=== PATIENT | male | born 1985 | race Caucasian/White ===

== ENCOUNTER → 2016-05-29 09:03 | Day surgery (SDC) | payer OTHER ==
[~2016-05-29 09:03] MED LIST: Buffered Lidocaine 1% SYR 3ML* 3 ML/SYR SYRINGE ONE; Bupivacaine 0.25% EPI 200,000* 30 ML SDV ONE; Bupivacaine 0.25% SDV* 30 ML ONE; Dexamethasone IV* 4 MG/ML 1 ML (4 MG) ONE; DiMENhydriNATE IV* 50 MG/ML VIAL IV PUSH PRN; Famotidine IV* 10 MG/ML 2 ML (20 mg) ONE; HYDROcodone/ACETAMIN 5-325 MG* 1 TAB PO PRN; HYDROmorphone INJ* 1 MG/ML CARPUJECT SYRINGE IV PRN; Ketorolac INJ* 30 MG/ML 1 ML VIAL ONE; Lidocaine 2% PF * 5 ML VIAL ONE; Midazolam* 1 MG/ML 5 ML VIAL (5 MG) ONE; Propofol* 10 MG/ML 20 ML BTL IV PUSH ONE; Sterile Water for Inj* 0 ML ONE; ceFAZolin 2 GM PREMIX (*) 2 GM/50 ML BAG IVPB ONE; fentaNYL* 50 MCG/ML 2 ML VIAL (100 MCG VIAL) ONE; methylPREDNISolone ACETATE 80* 80 MG/ML 1 ML VIAL ONE; oxyCODONE/Acetamin 5/325 MG* TAB ONE
[2016-05-29 12:20] VITALS: BP 119/71
--- NOTE | 2016-05-30 05:50 | OP ---
DATE OF OPERATION: 05/29/16 [facility] DATE OF : 89 SURGEON: Dennise Portillo MD INSTRUMENT MECHANIC: SYDNEY Rausch. An technology assistant was needed for the entirety of the case to help with positioning, retraction, and utilized through all portions of the case. ANESTHESIOLOGIST: Dr. Acosta. ANESTHESIA: General with LMA. PRE-OP DIAGNOSIS: Right knee loose body. POST-OP DIAGNOSIS: Right knee loose body. OPERATIVE PROCEDURE: Right knee arthroscopy with synovectomy and partial lateral meniscectomy. IMPLANTS: None. INDICATIONS: González Adhikari is a 31-year-old male who has had symptoms of locking of his right knee around 1 year after his ACL. He had this done by Dr. Finch in [place] at the age of 17. This was done in transtibial technique. He does state that it occasionally swells up on it. He had a second surgery by Dr. Finch where he went in to remove that loose body. He since that time noticed that he does have episodes of this locking, but he does not describe odilia instability, although he is unable to fully describe what he is talking about. Risks and benefits and surgery versus nonoperative treatment were discussed at length. He did have an MRI that is consistent with a loose body and it was just superior proximal to the ACL and it appeared to be loose on some views and on some views, it did not appear to be loose. Risks and benefits of surgery were discussed at length and he elected to proceed with surgery. DESCRIPTION OF PROCEDURE: The patient was greeted in the preoperative area by the attending surgeon. The correct extremity was marked and consent was confirmed. The patient was then brought back to the operating suite where he was placed in supine position on the operating table. He then underwent general anesthesia and LMA intubation after which an examination of the knee was done. He was found to have a 2A Leanna, negative posterior drawer. He had 1+ pivot shift, stable to varus and valgus stress, and trace effusion. After administration of surgical pause, the knee was intra-articularly injected with 0.25% Marcaine with epi. The knee was then prepped and draped in the usual sterile fashion beginning with a prescrub of chlorhexidine soap and alcohol wipe and a final prep of ChloraPrep. After appropriate surgical pause indicating site, side, procedure, and administration of antibiotics, the anterolateral portal was made sharply with the 11 blade. The scope was introduced into the joint. There was abundant scar tissue in fat pad anteriorly. The patellofemoral joint was examined and had grade 1 changes. Trochlea had grade 0 changes. The medial and lateral gutters were intact without any loose bodies. The scope was brought into the notch. There were some anterior fibers of the ACL that were not intact. These were debrided back. After making medial portal, the scar also was debrided back carefully. The probe was used and the medial condyle was examined. There were no tears in the medial meniscus. The medial femoral condyle had grade 0 to 1 changes. The medial tibial plateau had 0 to 1 changes. The ACL was found to be intact although it was not functional, it was a vertical graft. The PCL was intact. There were no loose bodies that were evident at this point. The knee was then placed in [id number] position. He was very stiff. He did have evidence of a previous parrot beak tear that apparently healed, but there was small unstable fraying that was debrided back using a shaver. The groove of the meniscus was intact, but had some unstable fraying which was debrided back as well. At this point, the probe was carefully used to try to delve out if there was a loose body in the notch itself although this was difficult to assess. The electrocautery device was also used to debride back some of the unstable fibers without causing harm to the actual ligament. The scope was then placed in the Olivia portal. This had been in between the medial femoral condyle and the PCL, and using a 30-degree scope, it was examined. There were no tears in the medial meniscus. There were no loose bodies evident. A 70- degree scope was also used to see if there is any visualization. The posterior aspect of the knee was gently massaged and there were no loose bodies evident. This was done multiple times with a 70-degree and a 30-degree scope in different portions of the knee and there was no loose body. There was an area of grade 3 to 4 changes of the lateral femoral condyle that was about 1 cm longitudinally and about 2 mm and there were no unstable flaps. All loose debris and fluid was removed from the joint. The knee was cycled many times. There was no loose body that was evident. After lavage was done, the knee was intra-articularly injected with 80 of Depo and 30 cc of 0.25 % plain. Sterile dressings were applied. The portals were closed with 3-0 nylon. He was awoken from anesthesia and transferred to the PACU in stable condition. POSTOPERATIVE PLAN: He will be weightbearing as tolerated. I discussed the findings with his significant other, and I do not know that there may be a small bony piece, but it was in the ACL and PCL and it was not loose. He may be describing some subtle signs of instability and we will consider that at his next visit. DVT prophylaxis is considered, but deferred due to no previous personal or family history. I will see the patient back in 10 to 14 days. [id number]/[facility] #: [id number] [facility]ENTER[facility]by
== END | disposition home or self-care (01) ==
LOC: OREAST 09:03
PROVIDERS: ATTEND Orthopaedic Surgery
DX: M23.41 Loose body in knee, right knee (principal); M23.232 Derangement of other medial meniscus due to old tear or injury, left knee; Z87.891 Personal history of nicotine dependence; J45.909 Unspecified asthma, uncomplicated
CPT/HCPCS: 88304; A9270-GY; J0690; J1040; J1100; J1885; J2250; J2704; J3010

== ENCOUNTER 2016-06-13 17:16 | Inpatient (IN) | payer OTHER ==
[2016-06-13] MEDS ORDERED: Bupivacaine 0.25% SDV* 30 ML ONE (17:42)
[2016-06-13] MEDS ORDERED: Bupivacaine 0.25% EPI 200,000* 30 ML SDV ONE (17:42)
[2016-06-13] MEDS ORDERED: ceFAZolin 2 GM PREMIX (*) 2 GM/50 ML BAG IVPB ONE (18:03)
[2016-06-13] MEDS ORDERED: oxyCODONE TAB* 5 MG TAB PO PRN (18:19)
[2016-06-13] MEDS ORDERED: diPHENhydraMINE IV* 50 MG/ML 1 ml VIAL (BENADRYL) IV PRN (18:19)
[2016-06-13] MEDS ORDERED: Ondansetron TAB* 4 MG PO PRN (18:19)
[2016-06-13] MEDS ORDERED: oxyCODONE/Acetamin 5/325 MG* TAB PO PRN (18:19)
[2016-06-13] MEDS ORDERED: Acetaminophen TAB* 325 MG PO PRN (18:19)
[2016-06-13] MEDS ORDERED: fentaNYL* 50 MCG/ML 2 ML VIAL (100 MCG VIAL) ONE ×3 (18:21→19:39)
[2016-06-13 18:31] LABS: Hematocrit 40 % (42-52); Hemoglobin 13.5 g/dl (14.0-18.0); Mean Corpuscular HGB Conc 34 g/dl (31-36); Mean Corpuscular Hemoglobin 32 pg (27-31); Mean Corpuscular Volume 93 fL (80-94); Mean Platelet Volume 8 um3 (7.4-10.4); Red Blood Count 4.27 10^6/ul (4.0-5.4); Red Cell Distribution Width 13 % (10.5-15); White Blood Count 17.3 10^3/ul (3.5-10.8)
[2016-06-13] MEDS ORDERED: DiMENhydriNATE IV* 50 MG/ML VIAL IV PUSH PRN (18:56)
[2016-06-13] MEDS ORDERED: Ondansetron INJ* 2 MG/ML VIAL IV PRN (18:56)
[2016-06-13] MEDS ORDERED: Ketorolac INJ* 30 MG/ML 1 ML VIAL IV PRN (18:56)
[2016-06-13 19:07] LABS: Erythrocyte Sed Rate 56 mm/Hr (0-14)
[2016-06-13] MEDS ORDERED: Propofol* 10 MG/ML 20 ML BTL IV PUSH ONE (19:17)
[2016-06-13] MEDS ORDERED: Lidocaine 2% PF * 5 ML VIAL ONE (19:17)
[2016-06-13] MEDS: fentaNYL* 50 MCG/ML 2 ML VIAL (100 MCG VIAL) IV PRN ×3 (19:25→19:55)
[2016-06-13] MEDS ORDERED: Ketorolac INJ* 30 MG/ML 1 ML VIAL ONE (20:13)
[2016-06-13] MEDS ORDERED: Morphine INJ* 2 MG/ML 1 ML CARPUJECT ONE (21:26)
[2016-06-13] MEDS: Morphine INJ* 2 MG/ML 1 ML CARPUJECT IV PRN (21:28)
[2016-06-13 22:42] LABS: Hematocrit 30 % (42-52); Hemoglobin 9.7 g/dl (14.0-18.0); Mean Corpuscular HGB Conc 33 g/dl (31-36); Mean Corpuscular Hemoglobin 31 pg (27-31); Mean Corpuscular Volume 94 fL (80-94); Mean Platelet Volume 9 um3 (7.4-10.4); Red Blood Count 3.12 10^6/ul (4.0-5.4); Red Cell Distribution Width 12 % (10.5-15); White Blood Count 12.2 10^3/ul (3.5-10.8)
[2016-06-14] MEDS: Morphine INJ* 2 MG/ML 1 ML CARPUJECT IV PRN (00:46)
[2016-06-14] MEDS: Oxacillin(*) 2 GM in NS 0.9% 100 ML* 100 ML IVPB SCH ×6 (00:48→20:06)
[2016-06-14] MEDS ORDERED: HYDROmorphone INJ* 1 MG/ML CARPUJECT SYRINGE ONE (02:03)
[2016-06-14] MEDS: HYDROmorphone INJ* 1 MG/ML CARPUJECT SYRINGE IV PRN ×4 (02:06→20:47)
[2016-06-14] MEDS ORDERED: ceFAZolin 1 GM in Dextrose (*) 1 GM/50 ML BAG IVPB SCH (02:30)
[2016-06-14] MEDS: oxyCODONE/Acetamin 5/325 MG* TAB PO PRN ×5 (03:05→22:37)
[2016-06-14] MEDS ORDERED: Albuterol 2.5 MG/3 ML NEB.SOL* (0.083%) INH PRN (04:08)
--- NOTE | 2016-06-14 04:08 | CONSULT ---
Consult Consult: PCP: SYDNEY Avalos Date/Time of Evaluation: 06/14/20161999 Reason for Consult: post-operative fever, rigors, & tachycardia s/p septic R knee wash out HPI: Mr Adhikari is a 31YO male HX R knee arthroscopy 2weeks ago last Sunday looking for a joint mouse. He did well afterwards until this past weekend when he states his knee "locked" and developed increased pain along with low grade fevers. Angelica Portillo MD orthopedics evaluated him in the office finding the R knee very swollen, but not hot or red. She obtained an aspirate which surprisingly was not blood and sent it for evaluation. The result was 77k WBCs and MSSA positive. She contacted him advising him to meet her at [facility] at 1600 for admission and joint wash out. Due to come misunderstanding on his end, Mr Adhikari ended up at [place] ED, was admitted, and subsequently discharged in order to come to [facility]. At any rate, he was seen my myself in recovery after the knee washout at the request of Dr Portillo due to developing tachycardia, fever, and rigors post-operatively. On my exam, he is groggy from general anesthesia, but answers appropriately, denies current pain or issues. PMedHx asthma R knee ACL tear Allergies Morphine Allergy (Verified 06/14/16 04:06) Rash And Itching Ambulatory Orders Otc Cold Medication 1 dose PO Q8H PRN 05/25/16 PSurgHx tympanostomy tubes appendectomy orchiectomy w/ circumcision R ACL reconstruction w/ subsequent joint mouse retrieval R knee arthroscopy R knee wash out 06/13/2016 SocHx: social alcohol & tobacco, denies recreational drugs; works in the [employer]; full code status FamHx: Mother: multiple cerebral aneurysms ROS: as above, otherwise reviewed and all were negative Constitutional: NAD, normally developed, well-nourished white male vitals: Vital Signs Temp 38.0 C 06/14/16 03:16 Pulse 87 06/14/16 03:16 Resp 16 06/14/16 03:16 BP 112/58 06/14/16 03:16 Pulse Ox 98 06/14/16 03:16 Intake & Output 06/13/16 06/13/16 06/14/16 11:59 23:59 11:59 Intake Total 820 600 Output Total 950 400 Balance -130 200 Weight 73.028 kg Intake: IV Fluids 500 LR 500 Oral 820 100 Output: Urine 950 400 Other: # Bowel Movements 0 HEENM: atraumatic; sclera/conjunctiva: non-icteric/clear; hearing: clinically intact; oropharynx: clear, mucosa moist Neck: soft tissue: no nuchal rigidity; thyroid: normal Pulmonary: clear to auscultation bilaterally, good aeration, no accessory muscle use CV: RR/RR, normal S1S2, no carotid bruit, no jugular venous distention, 2+ B DP/ PT, no edema Abdominal: soft, non-distended, non-tender, no rebound/guarding/rigidity, normoactive bowel sounds, no hepatosplenomegaly or masses, no costovertebral angle tenderness Musculoskeletal: general: R knee dressing clean & dry; gait: currently non- ambulatory 2nd being post-op R knee wash out Integumental: normal appearance and texture of exposed skin Psychiatric orientation: AA&O to PPS affect: somnolent mood: cooperative eye contact: fair to good content: reliable responses: mildly slowed 2nd anesthesia insight: fair to good Testing: Lab Results 06/13/16 06/13/16 06/13/16 Range/Units 18:17 18:17 22:31 WBC 17.3 H 12.2 H (3.5-10.8) 10^3/ul RBC 4.27 3.12 L (4.0-5.4) 10^6/ul Hgb 13.5 L 9.7 L (14.0-18.0) g/dl Hct 40 L 30 L (42-52) % MCV 93 94 (80-94) fL MCH 32 H 31 (27-31) pg MCHC 34 33 (31-36) g/dl RDW 13 12 (10.5-15) % Plt Count 208 145 L (150-450) 10^3/ul MPV 8 9 (7.4-10.4) um3 Neut % (Auto) 83.4 H (38-83) % Lymph % (Auto) 8.4 L (25-47) % [place] % (Auto) 7.7 (1-9) % Eos % (Auto) 0.1 (0-6) % Baso % (Auto) 0.4 (0-2) % Absolute Neuts (auto) 14.4 H (1.5-7.7) 10^3/ul Absolute Lymphs (auto) 1.5 (1.0-4.8) 10^3/ul Absolute Monos (auto) 1.3 H (0-0.8) 10^3/ul Absolute Eos (auto) 0 (0-0.6) 10^3/ul Absolute Basos (auto) 0.1 (0-0.2) 10^3/ul Absolute Nucleated RBC 0 10^3/ul Nucleated RBC % 0 ESR 56 H (0-14) mm/Hr C-Reactive Protein 206.70 H (< 5.00) mg/L Impression: 31M presenting with septic R knee ~2weeks s/p arthroscopy positive for MSSA DIAGNOSIS & PLAN Primary sepsis 2nd MSSA septic R knee : surgical management via Angelica Portillo MD orthopedic surgery : obtain blood CXs : switch ABX to oxacillin : 2L IVF bolus followed by infusion : pain control : PT evaluation : supportive care Secondary asthma : PRN albuterol neb Admission Rational: inpatient for sepsis 2nd MSSA septic R knee inappropriate for outpatient management DVTp: heparin SQ to start 06/14, if OK with orthopedics Code Status: full
--- NOTE | 2016-06-14 06:32 | HP ---
HISTORY AND PHYSICAL: DATE OF ADMISSION: 06/13/16 HISTORY OF PRESENT ILLNESS: González follows up for his right knee status post arthroscopy with meniscectomy 2 weeks and 1 days ago. I saw him last week and he was doing well. Approximately, 3 days ago, he woke up and he walked; he said he mildly felt a pop but he has not entirely sure. He has lot of swelling. He has had some pain with weightbearing. He has a lost some motion. He states that he had a few episodes of chills. He states that he may have had a low-grade fever today. He has a temperature of 98. He denies any catching or locking. He is concerned that may be his knee locked out. He is present with his lad friend. He is unable to weight bear comfortably. His knee is in about 15 degrees. He has a marked amount of swelling. PAST MEDICAL HISTORY: Significant for asthma. PAST SURGICAL HISTORY: ACL reconstruction with BTB autograft at age of 17, loose body removal in the right knee at age 19, appendectomy, PE tube, orchiectomy with circumcision age of 11, and right knee arthroscopy with debridement and partial meniscectomy about 2 weeks ago. MEDICATIONS: Medications are not up to date at home, but he was taking Plavix and aspirin currently. In hospital, he is taking atenolol and albuterol. He did not take Plavix today. Humalog, Flagyl, Zofran, Vanco. He did obtain a dose of Cipro and Zosyn. ALLERGIES: None. FAMILY HISTORY: Significant for aneurysms in the brain as well as mother who had a stroke. 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 Smokes on occasion. Drinks on occasion. REVIEW OF SYSTEMS: A 14-point review of systems was significant only for above complaints low-grade fevers, chills, and pain with weightbearing. Otherwise, remainder of systems is negative. PHYSICAL EXAMINATION He is in no acute distress. He is well developed and well nourished. He is alert and oriented x3. EOMI. Chest is clear to auscultation bilaterally. Heart is regular rate and rhythm. Abdomen is soft and nontender. Examination of the right knee demonstrates, the skin is intact. The incisions are healed well. There is no erythema or real warmth. He has a markedly large effusion. He is unable to fully extend his knee. Passively, I can get him to about 5 degrees shy of full extension. He can flex to about 30 degrees. He is tender about the knee, particularly about the medial and lateral portals. His calf is soft and nontender. He is sensitive to light touch grossly distally. He has brisk cap refill. He has guarding on exam. ASSESSMENT AND PLAN: I am concerned that he has a large knee effusion. He states that his knee lock is starting to swell significantly. He does not appear to be very ill but he said he has had some small chills, I think that is reasonable to proceed with an aspiration. PROCEDURE: The right knee was prepped and draped in a usual sterile fashion. A 22-gauge needle was used to numb the superior lateral portal with 10 cc of lidocaine. An 18- gauge needle was then used to aspirate approximately 105 cc of cloudy, somewhat purulent, material. He tolerated the injection well. A Band-Aid was applied. The fluid looked concerning; therefore, we sent for stat gram stain culture and cell count, and we will call him back with the results. ADDENDUM: DIAGNOSTICS STUDIES/LAB DATA: The lab called back. The cell count is 100; however, the white blood cell count is 77,000, 80% neutrophils. I am concerned that he has a septic joint. The gram stain and culture are not back yet. I did call the patient and let him know the result. I told him that I would like to wash him out this evening and he should remain n.p.o. He verbalized understanding. He should head to the hospital and we will take care of it this afternoon. Labs including CRP, CBC, and ESR will be drawn prior to the OR. Abx held until more specimen is collected. Plan is for arthroscopic I and D of right knee. [id number]/[facility] #: [id number] [facility]ITAL[facility]by
--- NOTE | 2016-06-14 08:53 | PN ---
Progress Note - Progress Note SOAP: Subjective: []Patient is seen at bedside. Girlfriend present. Pain comes in waves, moderate at times, currently comfortable. Denies SOB or dizziness. Objective: [] Vital Signs Temp 98.7 F 06/14/16 07:34 Pulse 82 06/14/16 07:34 Resp 16 06/14/16 08:32 BP 136/63 06/14/16 07:34 Pulse Ox 100 06/14/16 07:34 Intake & Output 06/13/16 06/14/16 06/14/16 18:59 06:59 18:59 Intake Total 2400 Output Total 1750 Balance 650 Weight 161 lb 161 lb Intake: IV Fluids 1150 LR 1150 IVPB 130 Oxacillin 130 Oral 1120 Output: Urine 1750 Other: # Bowel Movements 0 Laboratory Results - last 24 hr 06/13/16 06/13/16 06/13/16 18:17 18:17 22:31 WBC 17.3 H 12.2 H RBC 4.27 3.12 L Hgb 13.5 L 9.7 L Hct 40 L 30 L MCV 93 94 MCH 32 H 31 MCHC 34 33 RDW 13 12 Plt Count 208 145 L MPV 8 9 Neut % (Auto) 83.4 H Lymph % (Auto) 8.4 L [place] % (Auto) 7.7 Eos % (Auto) 0.1 Baso % (Auto) 0.4 Absolute Neuts (auto) 14.4 H Absolute Lymphs (auto) 1.5 Absolute Monos (auto) 1.3 H Absolute Eos (auto) 0 Absolute Basos (auto) 0.1 Absolute Nucleated RBC 0 Nucleated RBC % 0 ESR 56 H C-Reactive Protein 206.70 H Microbiology 06/13/16 18:47 Skin and Soft Tissue MRSA/MSSA (PCR - Final Knee Right Mrsa Negative S.aureus Positive Gram Stain - Final right knee RAFAEL is clean, dry and intact Cryo applied calf is non tender and soft Luca's sign negative neuro intact distally Assessment: []MSSA right knee infection s/p knee arthroscopy wash out POD #1 Plan: []PT WBAT IV Oxacillin Heparin for DVT prophylaxis Medicine consult appreciated Awaiting blood cultures
--- NOTE | 2016-06-14 15:21 | PN ---
Subjective Date of Service: 06/14/16 Interval History: Patient seen and examined at bedside. Pt states that he is feeling well today, but continues to have right knee pain. Pt states that his right knee feels "tight and swollen". Denies fever, chills, shortness of breath, chest discomfort , N/V/D. Pt is noted to have a low grade temp today, 100.7 temp max. Pt states that he has been able to get up and ambulate to the bathroom with crutches. Family History: Unchanged from Admission Social History: Unchanged from Admission Past Medical History: Unchanged from Admission Objective Active Medications: Acetaminophen (Tylenol Tab*) 650 mg PO Q4H PRN Reason: PAIN OR TEMPERATURE Albuterol (Ventolin 2.5 Mg/3 Ml Neb.Stephenie*) 2.5 mg INH Q2H PRN Reason: SOB/ WHEEZING Diphenhydramine HCl (Benadryl Iv*) 12.5 mg IV Q6H PRN Reason: PRURITIS Hydromorphone HCl (Dilaudid Iv*) 1 mg IV Q2H PRN Reason: PAIN Lactated Ringer's (Lactated Ringers 1000 Ml Bag*) 1,000 mls @ 150 mls/hr IV PER RATE EFREM Oxacillin Sodium 2 gm/ Sodium (Chloride) 100 mls @ 200 mls/hr IVPB Q4H EFREM Ondansetron HCl (Zofran Tab*) 4 mg PO Q6H PRN Reason: NAUSEA Oxycodone HCl (Roxycodone Tab*) 10 mg PO Q4H PRN Reason: SEVERE PAIN Oxycodone/Acetaminophen (Percocet 5/325 Tab*) 1 tab PO Q3H PRN Reason: PAIN - MODERATE Oxycodone/Acetaminophen (Percocet 5/325 Tab*) 2 tab PO Q3H PRN Reason: PAIN - MODERATE Vital Signs 06/13/16 06/13/16 06/13/16 17:43 19:23 19:25 Temperature 99.1 F 101.3 F 101.3 F Pulse Rate 97 140 122 Respiratory 16 22 22 Rate Blood Pressure 138/65 113/78 118/74 (mmHg) O2 Sat by Pulse 100 99 96 Oximetry 06/13/16 06/13/16 06/13/16 19:30 19:35 19:50 Temperature Pulse Rate 110 122 112 Respiratory 18 18 18 Rate Blood Pressure 148/72 145/62 133/54 (mmHg) O2 Sat by Pulse 98 98 98 Oximetry 06/13/16 06/13/16 06/13/16 19:55 20:10 20:21 Temperature 99.5 F Pulse Rate 102 106 Respiratory 20 16 16 Rate Blood Pressure 133/61 134/68 (mmHg) O2 Sat by Pulse 99 99 Oximetry 06/13/16 06/13/16 06/13/16 21:09 21:28 22:00 Temperature 99.4 F Pulse Rate 91 Respiratory 18 20 20 Rate Blood Pressure 135/63 (mmHg) O2 Sat by Pulse 100 Oximetry 06/13/16 06/13/16 06/13/16 22:01 22:28 22:41 Temperature 99.3 F Pulse Rate 86 Respiratory 16 20 20 Rate Blood Pressure 117/54 (mmHg) O2 Sat by Pulse 100 Oximetry 06/13/16 06/14/16 06/14/16 23:38 00:41 00:46 Temperature 100.4 F Pulse Rate 97 Respiratory 18 18 20 Rate Blood Pressure 109/61 (mmHg) O2 Sat by Pulse 97 Oximetry 06/14/16 06/14/16 06/14/16 01:10 01:46 02:06 Temperature 100.7 F Pulse Rate 92 Respiratory 18 20 18 Rate Blood Pressure 119/61 (mmHg) O2 Sat by Pulse 99 Oximetry 06/14/16 06/14/16 06/14/16 03:05 03:06 03:16 Temperature 100.4 F Pulse Rate 87 Respiratory 18 18 16 Rate Blood Pressure 112/58 (mmHg) O2 Sat by Pulse 98 Oximetry 06/14/16 06/14/16 06/14/16 07:34 08:00 08:32 Temperature 98.7 F Pulse Rate 82 Respiratory 16 16 16 Rate Blood Pressure 136/63 (mmHg) O2 Sat by Pulse 100 100 Oximetry 06/14/16 06/14/16 06/14/16 10:32 11:17 11:59 Temperature 99.0 F Pulse Rate 65 Respiratory 16 16 17 Rate Blood Pressure 120/55 (mmHg) O2 Sat by Pulse 98 Oximetry 06/14/16 06/14/16 13:16 15:00 Temperature Pulse Rate 85 Respiratory 16 16 Rate Blood Pressure (mmHg) O2 Sat by Pulse 98 Oximetry Oxygen Devices in Use Now: None Appearance: NAD, sitting up in bed. Eyes: No Scleral Icterus, PERRLA Ears/Nose/Mouth/Throat: NL Teeth, Lips, Gums, Mucous Membranes Moist Neck: NL Appearance and Movements; NL JVP, Trachea Midline Respiratory: Symmetrical Chest Expansion and Respiratory Effort, Clear to Auscultation Cardiovascular: NL Sounds; No Murmurs; No JVD, RRR Abdominal: NL Sounds; No Tenderness; No Distention Extremities: - - Edema to right knee. Skin: No Rash or Ulcers, - - Dressing to right knee clean, dry and intact. Neurological: Alert and Oriented x 3, NL Muscle Strength and Tone Lines/Tubes/Other Access: Clean, Dry and Intact Peripheral IV - site benign Nutrition: Taking PO's Result Diagrams: 06/13/16 22:31 Microbiology and Other Data: Microbiology 06/13/16 18:47 Gram Stain - Final Body Fluid - Knee Right 06/13/16 18:47 Skin and Soft Tissue MRSA/MSSA (PCR - Final Knee Right Mrsa Negative S.aureus Positive 06/13/16 18:47 Anaerobic Culture - Preliminary Body Fluid No Growth Day 1 Assess/Plan/Problems-Billing Assessment: Mr. Adhikari is a 31 yo male with PMH significant for asthma and a right ACL tear who is S/P right knee arthroscopy, who presented to the hospital with increased pain and swelling in his right knee and was taken to the OR for a washout with Dr. Portillo on 06/13. - Patient Problems (1) Sepsis due to Methicillin susceptible Staphylococcus aureus Code(s): A41.01 - SEPSIS DUE TO METHICILLIN SUSCEPTIBLE STAPHYLOCOCCUS AUREUS SNOMED Code(s): 354398847 Comment: - Improved - Received 2 L IVF bolus - Meeting sepsis criteria on admission with SIRS - tachycardia, tachypnea, fever , leukocytosis. Pt not meeting qSofa. - Tachycardia and tachypnea have resolved. - Blood cultures pending - Continue Oxacillin (2) Septic joint of right knee joint Code(s): M00.9 - PYOGENIC ARTHRITIS, UNSPECIFIED SNOMED Code(s): 162754434 Comment: - Management per Ortho - Continue Oxacillin - Continue PT (3) DVT prophylaxis Code(s): MNO3251 - SNOMED Code(s): 179208587 Comment: - SQ heparin (4) Full code status Code(s): Z78.9 - OTHER SPECIFIED HEALTH STATUS SNOMED Code(s): 514850056 Status and Disposition: Inpatient. Disposition per Orthopedics.
[2016-06-14] MEDS ORDERED: Ketorolac INJ* 30 MG/ML 1 ML VIAL ONE (20:43)
[2016-06-14] MEDS: Ketorolac INJ* 30 MG/ML 1 ML VIAL IV PUSH PRN (20:48)
[2016-06-14] MEDS: Heparin VIAL(*) 5000 UNITS/ML VIAL (FIVE THOUSAND) SUBCUT SCH (22:37)
[2016-06-15] MEDS: Oxacillin(*) 2 GM in NS 0.9% 100 ML* 100 ML IVPB SCH ×6 (00:44→20:37)
[2016-06-15] MEDS: HYDROmorphone INJ* 1 MG/ML CARPUJECT SYRINGE IV PRN ×2 (00:44→05:35)
[2016-06-15] MEDS: oxyCODONE/Acetamin 5/325 MG* TAB PO PRN ×5 (02:55→20:27)
[2016-06-15] MEDS: Ketorolac INJ* 30 MG/ML 1 ML VIAL IV PUSH PRN ×4 (02:55→21:41)
[2016-06-15 04:59] LABS: Hematocrit 36 % (42-52); Hemoglobin 11.9 g/dl (14.0-18.0); Mean Corpuscular HGB Conc 33 g/dl (31-36); Mean Corpuscular Hemoglobin 32 pg (27-31); Mean Corpuscular Volume 95 fL (80-94); Mean Platelet Volume 8 um3 (7.4-10.4); Red Blood Count 3.77 10^6/ul (4.0-5.4); Red Cell Distribution Width 13 % (10.5-15); White Blood Count 8.3 10^3/ul (3.5-10.8)
[2016-06-15] MEDS: Heparin VIAL(*) 5000 UNITS/ML VIAL (FIVE THOUSAND) SUBCUT SCH ×3 (05:35→22:37)
--- NOTE | 2016-06-15 07:57 | PN ---
Progress Note - Progress Note SOAP: Subjective: []Patient seen at bedside. Feeling better in terms of knee pain. He reports being ambulatory and able to move his knee better. Denies fever or chills, chest pain or SOB. Objective: [] Vital Signs Temp 97.9 F 06/15/16 04:15 Pulse 64 06/15/16 04:15 Resp 16 06/15/16 07:38 BP 97/66 06/15/16 04:15 Pulse Ox 99 06/15/16 04:15 Intake & Output 06/14/16 06/15/16 06/15/16 18:59 06:59 18:59 Intake Total 4061 2364 Output Total 1100 2550 Balance 2961 -186 Intake: IV Fluids 1571 254 LR 1236 157 NS 97 Oxacillin 335 IVPB 450 Oxacillin 450 Oral 2490 1660 Output: Urine 1100 2550 Other: Estimated Void Large # Bowel Movements 0 # Voids 2 Laboratory Results - last 24 hr 06/15/16 06/15/16 04:36 04:36 WBC 8.3 RBC 3.77 L Hgb 11.9 L Hct 36 L MCV 95 H MCH 32 H MCHC 33 RDW 13 Plt Count 202 MPV 8 Neut % (Auto) 49.0 Lymph % (Auto) 32.9 [place] % (Auto) 16.4 H Eos % (Auto) 1.4 Baso % (Auto) 0.3 Absolute Neuts (auto) 4.1 Absolute Lymphs (auto) 2.7 Absolute Monos (auto) 1.4 H Absolute Eos (auto) 0.1 Absolute Basos (auto) 0 Absolute Nucleated RBC 0.01 Nucleated RBC % 0.1 C-Reactive Protein 223.46 H Microbiology 06/14/16 00:57 Aerobic Blood Culture - Preliminary Blood Venous No Growth Day 1 Anaerobic Blood Culture - Preliminary No Growth Day 1 06/14/16 00:57 Aerobic Blood Culture - Preliminary Blood Venous No Growth Day 1 Anaerobic Blood Culture - Preliminary No Growth Day 1 06/13/16 18:47 Gram Stain - Final Body Fluid - Knee Right 06/13/16 18:47 Skin and Soft Tissue MRSA/MSSA (PCR - Final Knee Right Mrsa Negative S.aureus Positive 06/13/16 18:47 Anaerobic Culture - Preliminary Body Fluid No Growth Day 1 Assessment: [] MSSA Septic right knee, s/p arthroscopic washout POD #2 Awaiting Blood cultures, NGTD Plan: []Patient on Oxacillin IV q4 hrs. Heparin q 12hrs for dvt prophylaxis OOB ad briana, WBAT Continue to monitor and for CRP to start trending down Await home antibiotic recommendations
[2016-06-15] MEDS ORDERED: Magnesium Hydroxide LIQ* 30 ML UDC PO PRN (08:51)
[2016-06-15] MEDS ORDERED: Senna TAB PO PRN (08:52)
[2016-06-15] MEDS: Docusate CAP* 100 MG PO PRN (09:30)
[2016-06-15] MEDS ORDERED: NS 0.9% 100 ML* 100 ML ONE (11:55)
--- NOTE | 2016-06-15 14:07 | PN ---
Subjective Date of Service: 06/15/16 Interval History: Patient seen and examined at bedside. Pt states that the pain in his right knee is improving. Denies fever, chills, shortness of breath, chest discomfort, N/V/ D. Family History: Unchanged from Admission Social History: Unchanged from Admission Past Medical History: Unchanged from Admission Objective Active Medications: Acetaminophen (Tylenol Tab*) 650 mg PO Q4H PRN Reason: PAIN OR TEMPERATURE Albuterol (Ventolin 2.5 Mg/3 Ml Neb.Stephenie*) 2.5 mg INH Q2H PRN Reason: SOB/ WHEEZING Diphenhydramine HCl (Benadryl Iv*) 12.5 mg IV Q6H PRN Reason: PRURITIS Docusate Sodium (Colace Cap*) 100 mg PO DAILY PRN Reason: CONSTIPATION Heparin Sodium (Porcine) (Heparin Vial(*)) 5,000 units SUBCUT Q8HR EFREM Hydromorphone HCl (Dilaudid Iv*) 1 mg IV Q2H PRN Reason: PAIN Oxacillin Sodium 2 gm/ Sodium (Chloride) 100 mls @ 200 mls/hr IVPB Q4H EFREM Ketorolac Tromethamine (Toradol Inj*) 30 mg IV PUSH Q6H PRN Reason: PAIN Magnesium Hydroxide (Milk Of Magnesia Liq*) 30 ml PO Q6H PRN Reason: CONSTIPATION Ondansetron HCl (Zofran Tab*) 4 mg PO Q6H PRN Reason: NAUSEA Oxycodone HCl (Roxycodone Tab*) 10 mg PO Q4H PRN Reason: SEVERE PAIN Oxycodone/Acetaminophen (Percocet 5/325 Tab*) 1 tab PO Q3H PRN Reason: PAIN - MODERATE Oxycodone/Acetaminophen (Percocet 5/325 Tab*) 2 tab PO Q3H PRN Reason: PAIN - MODERATE Senna (Senokot Tab*) 1 tab PO DAILY PRN Reason: CONSTIPATION Vital Signs 06/14/16 06/14/16 06/14/16 15:00 15:27 16:30 Temperature 98.0 F Pulse Rate 85 71 Respiratory 16 16 16 Rate Blood Pressure 115/58 (mmHg) O2 Sat by Pulse 98 100 Oximetry 06/14/16 06/14/16 06/14/16 17:30 17:37 18:32 Temperature 99.5 F Pulse Rate 83 Respiratory 16 16 16 Rate Blood Pressure 131/54 (mmHg) O2 Sat by Pulse Oximetry 06/14/16 06/14/16 06/14/16 20:00 20:15 20:32 Temperature 99.4 F Pulse Rate 100 Respiratory 18 18 18 Rate Blood Pressure 126/55 (mmHg) O2 Sat by Pulse 99 Oximetry 06/14/16 06/14/16 06/14/16 20:47 21:25 21:47 Temperature Pulse Rate 11 Respiratory 18 19 16 Rate Blood Pressure (mmHg) O2 Sat by Pulse 99 Oximetry 06/14/16 06/14/16 06/15/16 22:37 23:48 00:37 Temperature 98.2 F Pulse Rate 65 Respiratory 16 18 16 Rate Blood Pressure 108/60 (mmHg) O2 Sat by Pulse 99 Oximetry 06/15/16 06/15/16 06/15/16 04:15 04:55 05:35 Temperature 97.9 F Pulse Rate 64 Respiratory 16 16 16 Rate Blood Pressure 97/66 (mmHg) O2 Sat by Pulse 99 Oximetry 06/15/16 06/15/16 06/15/16 06:35 07:12 07:38 Temperature 97.9 F Pulse Rate 61 Respiratory 16 18 16 Rate Blood Pressure 98/59 (mmHg) O2 Sat by Pulse 100 Oximetry 06/15/16 06/15/16 06/15/16 08:00 09:38 11:58 Temperature Pulse Rate Respiratory 16 18 18 Rate Blood Pressure (mmHg) O2 Sat by Pulse 100 Oximetry Oxygen Devices in Use Now: None Appearance: NAD, sitting up in a chair. Eyes: No Scleral Icterus, PERRLA Ears/Nose/Mouth/Throat: NL Teeth, Lips, Gums, Mucous Membranes Moist Neck: NL Appearance and Movements; NL JVP, Trachea Midline Respiratory: Symmetrical Chest Expansion and Respiratory Effort, Clear to Auscultation Cardiovascular: NL Sounds; No Murmurs; No JVD, RRR Abdominal: NL Sounds; No Tenderness; No Distention Extremities: No Edema Skin: - - Dressing to right knee clean, dry and intact. Neurological: Alert and Oriented x 3, NL Muscle Strength and Tone Lines/Tubes/Other Access: Clean, Dry and Intact Peripheral IV - site benign Nutrition: Taking PO's Result Diagrams: 06/15/16 04:36 Microbiology and Other Data: Microbiology 06/13/16 18:47 Gram Stain - Final Body Fluid - Knee Right 06/13/16 18:47 Skin and Soft Tissue MRSA/MSSA (PCR - Final Knee Right Mrsa Negative S.aureus Positive 06/13/16 18:47 Anaerobic Culture - Preliminary Body Fluid No Growth Day 1 Assess/Plan/Problems-Billing Assessment: Mr. Adhikari is a 31 yo male with PMH significant for asthma and a right ACL tear who is S/P right knee arthroscopy, who presented to the hospital with increased pain and swelling in his right knee and was taken to the OR for a washout with Dr. Portillo on 06/13. - Patient Problems (1) Sepsis due to Methicillin susceptible Staphylococcus aureus Code(s): A41.01 - SEPSIS DUE TO METHICILLIN SUSCEPTIBLE STAPHYLOCOCCUS AUREUS SNOMED Code(s): 053492399 Comment: - Resolved - Received 2 L IVF bolus - Meeting sepsis criteria on admission with SIRS - tachycardia, tachypnea, fever , leukocytosis. Pt not meeting qSofa. - Tachycardia, tachypnea and leukocytosis have resolved. - Now afebrile. - Blood cultures, no growth day 1 - Continue Oxacillin (2) Septic joint of right knee joint Code(s): M00.9 - PYOGENIC ARTHRITIS, UNSPECIFIED SNOMED Code(s): 688637675 Comment: - S/P right knee washout, POD #2 - Management per Ortho - Continue Oxacillin - Will defer ABX to ID. Will likely need to have continued IV ABX. - Continue PT (3) DVT prophylaxis Code(s): VQK7443 - SNOMED Code(s): 995206330 Comment: - SQ heparin (4) Full code status Code(s): Z78.9 - OTHER SPECIFIED HEALTH STATUS SNOMED Code(s): 232102517 Status and Disposition: Inpatient. Disposition per Orthopedics.
[2016-06-15 15:58] LABS: C Reactive Protein 201.74 mg/L (< 5.00)
--- NOTE | 2016-06-15 17:20 | PN ---
Progress Note - Progress Note Note: pt seen and examined afebrile. feeling better. able to weight bear. Temp Pulse Resp BP Pulse Ox 98.2 F 58 18 109/46 100 06/15/16 15:49 06/15/16 15:49 06/15/16 16:47 06/15/16 15:49 06/15/16 15:49 NAD. right leg effusion decreased. less tender to palpation. no erythema or warmth. calf soft, nontender. able to flex/ext ankle and toes. silt grossly. brisk cap refill. Laboratory Results - last 24 hr 06/15/16 06/15/16 06/15/16 04:36 04:36 15:15 WBC 8.3 RBC 3.77 L Hgb 11.9 L Hct 36 L MCV 95 H MCH 32 H MCHC 33 RDW 13 Plt Count 202 MPV 8 Neut % (Auto) 49.0 Lymph % (Auto) 32.9 [place] % (Auto) 16.4 H Eos % (Auto) 1.4 Baso % (Auto) 0.3 Absolute Neuts (auto) 4.1 Absolute Lymphs (auto) 2.7 Absolute Monos (auto) 1.4 H Absolute Eos (auto) 0.1 Absolute Basos (auto) 0 Absolute Nucleated RBC 0.01 Nucleated RBC % 0.1 C-Reactive Protein 223.46 H 201.74 H Microbiology 06/13/16 18:47 Body Fluid - Knee Right Gram Stain - Final 06/13/16 18:47 Body Fluid - Knee Right Body Fluid Culture - Preliminary Staphylococcus Aureus 06/13/16 18:47 Body Fluid Anaerobic Culture - Preliminary 06/14/16 00:57 Blood Venous Aerobic Blood Culture - Preliminary No Growth Day 1 06/14/16 00:57 Blood Venous Anaerobic Blood Culture - Preliminary No Growth Day 1 06/14/16 00:57 Blood Venous Aerobic Blood Culture - Preliminary No Growth Day 1 06/14/16 00:57 Blood Venous Anaerobic Blood Culture - Preliminary No Growth Day 1 06/13/16 18:47 Knee Right Skin and Soft Tissue MRSA/MSSA (PCR - Final Mrsa Negative S.aureus Positive A/P 31 yo M with septic arthritis s/p knee scope. cont abx await sensitivies to determine final abx potential d/c home tomorrow if continues to improve. will likely have him follow with ID on outpatient basis as well
[2016-06-16] MEDS: Oxacillin(*) 2 GM in NS 0.9% 100 ML* 100 ML IVPB SCH ×6 (00:06→20:35)
[2016-06-16] MEDS: oxyCODONE/Acetamin 5/325 MG* TAB PO PRN ×8 (00:08→23:52)
--- NOTE | 2016-06-16 01:08 | OP ---
DATE OF OPERATION: 06/13/16 - ROOM #340 DATE OF : 89 SURGEON: Dennise Portillo MD DOOR TECHNICIAN: No video library assistant was available for this case. ANESTHESIOLOGIST: Dr. Rankin. ANESTHESIA: General. PRE-OP DIAGNOSIS: Right knee septic arthritis. POST-OP DIAGNOSIS: Right knee septic arthritis. OPERATIVE PROCEDURE: Right knee arthroscopic irrigation and debridement with culture. INDICATIONS: González Adhikari is a 31-year-old otherwise healthy male who underwent an uneventful knee arthroscopy approximately 2 weeks ago. He presented to the clinic after 2 days of swelling and increased pain. In the clinic, his knee was aspirated. There was concern for cloudy fluid, therefore this was sent to the lab stat. He was kept NPO. The lab results came back with elevated white blood cell count of 77,000. He was starting to get more pain. He reported some mild chills, he was brought back to the hospital later this evening for an emergent arthroscopic irrigation and debridement. Risks and benefits of surgery were discussed at length and include, but are not limited to, bleeding, infection, damage to nerves, vessels, surrounding structures, arthritis, worsening infection, need for further surgery, risk of DVT, and risk of anesthesia. He has elected to proceed. The pre-prep examination demonstrated the effusion had returned, it was quite large again, it is now warm and erythematous. COMPLICATIONS: None. ESTIMATED BLOOD LOSS: Minimal. SPECIMENS: Sent to the lab. DESCRIPTION OF PROCEDURE: The patient was greeted in the preoperative area by the attending surgeon. The correct extremity was marked and consent was confirmed. The patient was then brought back to the operating suite where he was placed in the supine position on the operating table. A nonsterile tourniquet was placed high on the proximal leg as well as the lateral post. The patient underwent general anesthesia with LMA intubation, which he tolerated without difficulty after which the right leg was prepped and draped in usual sterile fashion beginning with chlorhexidine soap, scrub, and alcohol, and a final prep with ChloraPrep. After appropriate surgical pause indicating side, site, procedure, and administration of antibiotics, the lateral portal was made sharply with an 11- blade. Scope was introduced to the joint. The joint was examined. There was obvious purulent drainage apparent. This was evacuated from the knees, sent to the lab for evaluation. Then, the knee was copiously irrigated with 12 L of sterile saline. The anteromedial portal was then made and the shaver was brought into help irrigate and cause more turbulent flow and remove any adherent soft tissue. After the thorough lavage was completed, the portals were closed with 3-0 nylon. The drain was not placed due to the fact that this was caught so early. He was awoken from anesthesia and transferred to the PACU in stable condition. POSTOPERATIVE PLAN: He will be admitted, placed on oxacillin. The Gram stain came back just prior to surgery with MSSA. We olga a CBC, CRP, and ESR prior to surgery and we will continue to monitor them postop. ID is not in-house and was not consulted; therefore, hospitalist will be consulted. DVT prophylaxis will be heparin with scds while in house. [id number]/[facility] #: [id number] MTDD
[2016-06-16] MEDS: Heparin VIAL(*) 5000 UNITS/ML VIAL (FIVE THOUSAND) SUBCUT SCH ×3 (05:36→21:26)
[2016-06-16] MEDS: Docusate CAP* 100 MG PO PRN (08:18)
[2016-06-16 11:26] LABS: Albumin 3.3 g/dL (3.2-5.2); BUN/Creatinine Ratio 10.9 (8-20); Calcium 9.2 mg/dL (8.6-10.3); EGFR African American 125.1 (>60); EGFR Non-African American 97.3 (>60); Globulin 3.2 g/dL (2-4); Potassium 4.1 mmol/L (3.5-5.0); Total Bilirubin 0.5 mg/dL (0.2-1.0); Total Protein 6.5 g/dL (6.4-8.9)
--- NOTE | 2016-06-16 12:38 | PN ---
Progress Note - Progress Note SOAP: Subjective: [31 year old male s/p arthroscopic I&D for right knee sepsis 06/15/2016. Patient reports pain, ROM slightly improved from yesterday, no fever, chills overnight. Upset that pain medication decreased which has lead to increased pain overall. Eager for D/C. Febrile overnight to 101.3F. Objective: [General- Resting comfortably, eating breakfast. MSK- Dressing intact, no drainage seen, minimal swelling, No edema b/l LE's. PT pulses 2+ b/l. ] Assessment: [][31 year old male s/p arthroscopic I&D for right knee sepsis 06/15/2016. Vital Signs Temp 98.5 F 06/16/16 07:57 Pulse 80 06/16/16 11:34 Resp 16 06/16/16 11:34 BP 129/75 06/16/16 07:57 Pulse Ox 100 06/16/16 11:34 Intake & Output 06/15/16 06/16/16 06/16/16 18:59 06:59 18:59 Intake Total 1370 1793 Output Total 0 375 Balance 1370 1418 Intake: IV Fluids 30 NS 30 IVPB 370 263 NS 60 Oxacillin 310 263 Oral 1000 1500 Output: Urine 0 375 Other: Estimated Void Medium Medium # Bowel Movements 0 # Voids 1 Plan: [- ID to see patient today, PICC to be placed, D/C after PICC placement and home care arrangements - Continue pain regimen - Continue IV ABX per Dr. Merlos recommendations - Dressing change by nursing staff daily. - CRP declining from 223 to 201. ] Active Medications Generic Name Dose Route Start Last Admin Trade Name Rylee PRN Reason Stop Dose Admin Acetaminophen 650 mg 06/13/16 18:19 Tylenol Tab* PO Q4H PRN PAIN OR TEMPERATURE Albuterol 2.5 mg 06/14/16 04:08 Ventolin 2.5 Mg/3 Ml Neb.Stephenie* INH Q2H PRN SOB/WHEEZING Diphenhydramine HCl 12.5 mg 06/13/16 18:19 Benadryl Iv* IV Q6H PRN PRURITIS Docusate Sodium 100 mg 06/15/16 08:54 06/16/16 08:18 Colace Cap* PO 100 mg DAILY PRN Administration CONSTIPATION Heparin Sodium (Porcine) 5,000 units 06/14/16 22:00 06/16/16 05:36 Heparin Vial(*) SUBCUT 5,000 units Q8HR EFREM Administration Hydromorphone HCl 1 mg 06/14/16 01:58 06/15/16 05:35 Dilaudid Iv* IV 1 mg Q2H PRN Administration PAIN Oxacillin Sodium 2 gm/ Sodium 100 mls @ 200 mls/hr 06/14/16 00:30 06/16/16 08 :17 Chloride IVPB 200 mls/hr Q4H EFREM Administration Ketorolac Tromethamine 30 mg 06/14/16 20:18 06/15/16 21:41 Toradol Inj* IV PUSH 30 mg Q6H PRN Administration PAIN Magnesium Hydroxide 30 ml 06/15/16 08:51 06/15/16 20:26 Milk Of Magnesia Liq* PO 30 ml Q6H PRN Administration CONSTIPATION Ondansetron HCl 4 mg 06/13/16 18:19 Zofran Tab* PO Q6H PRN NAUSEA Oxycodone HCl 10 mg 06/13/16 18:19 Roxycodone Tab* PO Q4H PRN SEVERE PAIN Oxycodone/Acetaminophen 1 tab 06/13/16 18:19 06/13/16 22:41 Percocet 5/325 Tab* PO 1 tab Q3H PRN Administration PAIN - MODERATE Oxycodone/Acetaminophen 2 tab 06/13/16 18:19 06/16/16 10:47 Percocet 5/325 Tab* PO 2 tab Q3H PRN Administration PAIN - MODERATE Senna 1 tab 06/15/16 08:52 06/15/16 09:30 Senokot Tab* PO 1 tab DAILY PRN Administration CONSTIPATION Laboratory Results - last 24 hr 06/15/16 15:15 Sodium 137 Potassium 4.1 Chloride 104 Carbon Dioxide 24 Anion Gap 9 BUN 10 Creatinine 0.92 Est GFR ( Amer) 125.1 Est GFR (Non-Af Amer) 97.3 BUN/Creatinine Ratio 10.9 Glucose 79 Calcium 9.2 Total Bilirubin 0.50 AST 50 H ALT 61 H Alkaline Phosphatase 89 C-Reactive Protein 201.74 H Total Protein 6.5 Albumin 3.3 Globulin 3.2 Albumin/Globulin Ratio 1.0
--- NOTE | 2016-06-16 14:10 | PN ---
Subjective Date of Service: 06/16/16 Interval History: Patient seen and examined at bedside. Pt reports intermittent fever and chills. Pt had a temp 101.3 last night. Denies chest discomfort, shortness of breath, N/ V/D. Pt states that he continues to have pain in his right knee, he feels the pain is about the same and not improving. He reports continues swelling in the right knee. Family History: Unchanged from Admission Social History: Unchanged from Admission Past Medical History: Unchanged from Admission Objective Active Medications: Acetaminophen (Tylenol Tab*) 650 mg PO Q4H PRN Reason: PAIN OR TEMPERATURE Albuterol (Ventolin 2.5 Mg/3 Ml Neb.Stephenie*) 2.5 mg INH Q2H PRN Reason: SOB/ WHEEZING Diphenhydramine HCl (Benadryl Iv*) 12.5 mg IV Q6H PRN Reason: PRURITIS Docusate Sodium (Colace Cap*) 100 mg PO DAILY PRN Reason: CONSTIPATION Heparin Sodium (Porcine) (Heparin Vial(*)) 5,000 units SUBCUT Q8HR EFREM Heparin Sodium (Porcine) (Heparin Flush Picc/Ml/Cvc(*)) 1 - 3 ml FLUSH 0600, 1800 EFERM Reason: Protocol Hydromorphone HCl (Dilaudid Iv*) 1 mg IV Q2H PRN Reason: PAIN Oxacillin Sodium 2 gm/ Sodium (Chloride) 100 mls @ 200 mls/hr IVPB Q4H EFREM Ketorolac Tromethamine (Toradol Inj*) 30 mg IV PUSH Q6H PRN Reason: PAIN Magnesium Hydroxide (Milk Of Magnesia Liq*) 30 ml PO Q6H PRN Reason: CONSTIPATION Ondansetron HCl (Zofran Tab*) 4 mg PO Q6H PRN Reason: NAUSEA Oxycodone HCl (Roxycodone Tab*) 10 mg PO Q4H PRN Reason: SEVERE PAIN Oxycodone/Acetaminophen (Percocet 5/325 Tab*) 1 tab PO Q3H PRN Reason: PAIN - MODERATE Oxycodone/Acetaminophen (Percocet 5/325 Tab*) 2 tab PO Q3H PRN Reason: PAIN - MODERATE Senna (Senokot Tab*) 1 tab PO DAILY PRN Reason: CONSTIPATION Vital Signs 06/15/16 06/15/16 06/15/16 15:49 16:00 16:47 Temperature 98.2 F Pulse Rate 58 Respiratory 16 18 Rate Blood Pressure 109/46 (mmHg) O2 Sat by Pulse 100 100 Oximetry 06/15/16 06/15/16 06/15/16 18:47 19:25 20:00 Temperature 97.9 F Pulse Rate 74 Respiratory 18 16 18 Rate Blood Pressure 111/67 (mmHg) O2 Sat by Pulse 99 Oximetry 06/15/16 06/15/16 06/15/16 20:27 21:46 22:26 Temperature 101.3 F Pulse Rate Respiratory 18 18 Rate Blood Pressure (mmHg) O2 Sat by Pulse Oximetry 06/16/16 06/16/16 06/16/16 00:02 00:08 02:08 Temperature 99.5 F Pulse Rate 66 Respiratory 16 18 16 Rate Blood Pressure 127/66 (mmHg) O2 Sat by Pulse 99 Oximetry 06/16/16 06/16/16 06/16/16 03:42 03:46 05:46 Temperature 98.3 F Pulse Rate 80 Respiratory 16 18 18 Rate Blood Pressure 137/61 (mmHg) O2 Sat by Pulse 99 Oximetry 06/16/16 06/16/16 06/16/16 07:57 08:00 08:17 Temperature 98.5 F Pulse Rate 83 Respiratory 16 16 16 Rate Blood Pressure 129/75 (mmHg) O2 Sat by Pulse 100 100 Oximetry 06/16/16 06/16/16 06/16/16 10:47 11:34 13:45 Temperature Pulse Rate 80 Respiratory 16 16 16 Rate Blood Pressure (mmHg) O2 Sat by Pulse 100 Oximetry Oxygen Devices in Use Now: None Appearance: NAD, laying in bed. Eyes: No Scleral Icterus, PERRLA Ears/Nose/Mouth/Throat: NL Teeth, Lips, Gums, Mucous Membranes Moist Neck: NL Appearance and Movements; NL JVP, Trachea Midline Respiratory: Symmetrical Chest Expansion and Respiratory Effort, Clear to Auscultation Cardiovascular: NL Sounds; No Murmurs; No JVD, RRR Abdominal: NL Sounds; No Tenderness; No Distention Extremities: - - Swelling to right knee Skin: - - Dressing to right knee clean, dry and intact Neurological: Alert and Oriented x 3, NL Muscle Strength and Tone Lines/Tubes/Other Access: Clean, Dry and Intact PICC Line - site benign Nutrition: Taking PO's Result Diagrams: 06/15/16 04:36 06/15/16 15:15 Microbiology and Other Data: Microbiology 06/13/16 18:47 Gram Stain - Final Body Fluid - Knee Right 06/13/16 18:47 Skin and Soft Tissue MRSA/MSSA (PCR - Final Knee Right Mrsa Negative S.aureus Positive 06/13/16 18:47 Anaerobic Culture - Preliminary Body Fluid No Growth Day 1 Assess/Plan/Problems-Billing Assessment: Mr. Adhikari is a 31 yo male with PMH significant for asthma and a right ACL tear who is S/P right knee arthroscopy, who presented to the hospital with increased pain and swelling in his right knee and was taken to the OR for a washout with Dr. Portillo on 06/13. - Patient Problems (1) Sepsis due to Methicillin susceptible Staphylococcus aureus Code(s): A41.01 - SEPSIS DUE TO METHICILLIN SUSCEPTIBLE STAPHYLOCOCCUS AUREUS SNOMED Code(s): 283930496 Comment: - Resolved - Meeting sepsis criteria on admission with SIRS - tachycardia, tachypnea, fever , leukocytosis. Pt not meeting qSofa. - Tachycardia, tachypnea and leukocytosis have resolved. - Febrile last night. - Blood cultures, no growth day 2 - Continue Oxacillin - ID consult, appreciate input - Will need 4 weeks IV Oxacillin, follow with ID outpatient. - Weekly CBC, CRP and CMP (2) Septic joint of right knee joint Code(s): M00.9 - PYOGENIC ARTHRITIS, UNSPECIFIED SNOMED Code(s): 202154325 Comment: - S/P right knee washout, POD #3 - Management per Ortho - Continue Oxacillin - Will need 4 weeks IV ABX. (3) DVT prophylaxis Code(s): [id number] - SNOMED Code(s): 374653724 Comment: - SQ heparin (4) Full code status Code(s): Z78.9 - OTHER SPECIFIED HEALTH STATUS SNOMED Code(s): 858062912 Status and Disposition: Inpatient. Disposition per Orthopedics. Possible discharge to home in AM with outpatient IV ABX.
--- NOTE | 2016-06-16 19:05 | CONS ---
CONSULTATION REPORT: DATE OF CONSULT: 06/16/16 REQUESTING PROVIDER: Emily Payan NP CONSULTING SERVICE: Infectious Disease. REASON FOR CONSULT: Right knee infection. IMPRESSION: 1. Septic right knee arthritis due to methicillin-sensitive Staph aureus, has had an arthroscopic incision and debridement and is improving on oxacillin. 2. Fever due to infection, improving as well as leukocytosis, improving. His fever persists, but the white count has resolved. 3. Status post right knee arthroscopy with synovectomy and partial lateral meniscectomy 05/29/16. RECOMMENDATIONS: Agree with oxacillin 2 g IV every 4 hours for 4 more weeks. I discussed with him placement of a PICC line, mechanics of home IV antibiotics , which will be need to be setup before he leaves, side effects of fever, rash, or diarrhea to call for any of those. Weekly CBC, CMP, and CRP. To monitor for side effects and improvement in infection. To call me with either fever, rash, or diarrhea or worsening of pain, swelling, or stiffness in the right knee. We will check a CMP. HISTORY OF PRESENT ILLNESS: This is a 31-year-old man with a recent partial meniscectomy of the right knee who then developed some swelling, stiffness, fevers, chills, and sweats at home; seen by Dr. Portillo who aspirated the knee joint on the with 77,000 white cells, also neutrophils, fluid Gram stain showed 4+ polyps and no organisms. The culture grew staph aureus, methicillin sensitive. He was taken for a wash out later in the afternoon, Gram stain showed 4+ polys, also positive for Staph aureus by culture and a PCR was positive for staph aureus and MRSA negative. Blood cultures were negative. His fevers have resolved. His white count has come down. The pain, stiffness, and swelling persists, but it is better than when he got here. He was using NSAIDS and narcotics with some improvement. He has never had an infection requiring hospitalization in the past. PAST MEDICAL HISTORY: 1. Asthma. 2. Status post right knee partial meniscectomy April 2016. MEDICATIONS: 1. Tylenol. 2. Albuterol. 3. Docusate. 4. Dilaudid. 5. Heparin subcu as injection. 6. Ketorolac. 7. Zofran. 8. Oxacillin 2 g every 4 hours. ALLERGIES: MORPHINE. FAMILY HISTORY: No recurrent infections. SOCIAL HISTORY: Lives in [place]. He works as a cook. He has no travel. No sick contacts. No injection drugs. REVIEW OF SYSTEMS: All negative except as noted above. PHYSICAL EXAM: Vital Signs: Temperature 37, heart rate is 80, respiratory rate 16, blood pressure is 130/75, and O2 saturation 100% on room air. General : He is in no distress. Neurological: He is awake and oriented x3. Follows all commands. HEENT: There is no conjunctival hemorrhage. Oropharynx without lesions. Neck: Neck is supple without nuchal rigidity. Lymph nodes: There is no cervical, supraclavicular, inguinal, axillary, or epitrochlear lymphadenopathy. Heart: Regular rate and rhythm without murmurs, rubs, or gallops. Lungs: Clear to auscultation bilaterally. Abdomen: Soft, nontender , and nondistended without hepatosplenomegaly. Skin: There is no rash or splinter hemorrhages. Musculoskeletal: There is no spine tenderness to palpation or joint synovitis except for the right knee, there is diffuse edema, warmth, and diffuse tenderness without any fluctuance. DIAGNOSTIC STUDIES/LAB DATA: White blood cell count 8 down from 17, hemoglobin 11, and platelets 202. CRP was 200 down from 220. Please see impressions and recommendations as outlined above. [id number]/[facility] #: [id number] MTDD
[2016-06-16] MEDS: Ketorolac INJ* 30 MG/ML 1 ML VIAL IV PUSH PRN (23:51)
[2016-06-17] MEDS: Oxacillin(*) 2 GM in NS 0.9% 100 ML* 100 ML IVPB SCH ×4 (00:16→11:54)
[2016-06-17] MEDS: oxyCODONE/Acetamin 5/325 MG* TAB PO PRN ×2 (03:17→07:11)
[2016-06-17] MEDS: Heparin VIAL(*) 5000 UNITS/ML VIAL (FIVE THOUSAND) SUBCUT SCH (05:44)
[2016-06-17 06:20] LABS: Albumin 3.3 g/dL (3.2-5.2); BUN/Creatinine Ratio 11.8 (8-20); Calcium 9.3 mg/dL (8.6-10.3); EGFR African American 137.1 (>60); EGFR Non-African American 106.6 (>60); Globulin 3.4 g/dL (2-4); Potassium 4.2 mmol/L (3.5-5.0); Total Bilirubin 0.8 mg/dL (0.2-1.0); Total Protein 6.7 g/dL (6.4-8.9)
--- NOTE | 2016-06-17 08:33 | PN ---
Progress Note - Progress Note Note: s/p arthroscopic I and D of right knee. afebrile Temp Pulse Resp BP Pulse Ox 98.0 F 57 16 99/45 99 06/17/16 07:32 06/17/16 07:32 06/17/16 08:00 06/17/16 07:32 06/17/16 08:00 NAD. RLE: incision c/d/i. moderate effusion. nontender except about incisions. no erythema and warmth. ROM 0-30 degrees with no pain. calf soft, nt. brisk cap refill. Laboratory Results - last 24 hr 06/15/16 06/17/16 15:15 05:54 Sodium 137 136 Potassium 4.1 4.2 Chloride 104 103 Carbon Dioxide 24 27 Anion Gap 9 6 BUN 10 10 Creatinine 0.92 0.85 Est GFR ( Amer) 125.1 137.1 Est GFR (Non-Af Amer) 97.3 106.6 BUN/Creatinine Ratio 10.9 11.8 Glucose 79 103 H Calcium 9.2 9.3 Total Bilirubin 0.50 0.80 AST 50 H 16 ALT 61 H 37 Alkaline Phosphatase 89 116 H Total Protein 6.5 6.7 Albumin 3.3 3.3 Globulin 3.2 3.4 Albumin/Globulin Ratio 1.0 1.0 Microbiology 06/14/16 00:57 Aerobic Blood Culture - Preliminary Blood Venous No Growth Day 3 Anaerobic Blood Culture - Preliminary No Growth Day 3 Blood Culture - Final 06/14/16 00:57 Aerobic Blood Culture - Preliminary Blood Venous No Growth Day 3 Anaerobic Blood Culture - Preliminary No Growth Day 3 Blood Culture - Final 06/13/16 18:47 Gram Stain - Final Body Fluid - Knee Right Body Fluid Culture - Preliminary Staphylococcus Aureus 06/13/16 18:47 Anaerobic Culture - Preliminary Body Fluid A/P s/p I and D of knee with MSSA appreciate ID involvement. plan for d/c home today will try oxy ir 10-15 mg q3 tylenol 1000 mg tid ibuprofen 800 mg tid for pain management. f/u in clinic or sunday
[2016-06-17] MEDS ORDERED: Ibuprofen TAB* 600 MG PO PRN (09:39)
[2016-06-17 09:54] LABS: Hematocrit 35 % (42-52); Hemoglobin 11.7 g/dl (14.0-18.0); Mean Corpuscular HGB Conc 33 g/dl (31-36); Mean Corpuscular Hemoglobin 31 pg (27-31); Mean Corpuscular Volume 94 fL (80-94); Mean Platelet Volume 8 um3 (7.4-10.4); Red Blood Count 3.73 10^6/ul (4.0-5.4); Red Cell Distribution Width 13 % (10.5-15); White Blood Count 8.9 10^3/ul (3.5-10.8)
[2016-06-17] MEDS ORDERED: oxyCODONE TAB* 5 MG TAB PO PRN (10:30)
[2016-06-17 12:06] VITALS: BP 132/55
--- NOTE | 2016-06-18 03:12 | DS ---
DISCHARGE SUMMARY: DATE OF ADMISSION: 06/13/16 DATE OF DISCHARGE: 06/17/16 ADMITTING DIAGNOSIS: Right knee septic arthritis. DISCHARGE DIAGNOSIS: Right knee septic arthritis. HISTORY OF PRESENT ILLNESS: González Adhikari is a 31-year-old male who underwent an uncomplicated right knee arthroscopy approximately 2 week ago, who presented to the clinic with a swollen knee and increased pain. He underwent aspiration in the clinic, which diagnosed him with septic arthritis. He was then admitted to the hospital for definitive treatment. The patient was admitted through Same -Day Surgery and underwent emergent right knee arthroscopic I and D with lavage. He tolerated the procedure well. He received perioperative antibiotics , which was initially Ancef and then transitioned to oxacillin. Towards the end of the procedure, he started to develop shaking chills and was febrile. Medicine was consulted because he met some criteria of sepsis. Shortly after the procedure was completed, however, he returned to baseline and was afebrile. His hospital course was followed quite carefully. His initial white count was elevated and eventually trended down slowly by day 2. Postoperatively, it was normal at 8. His ESR and CRP were elevated. CRP was followed and eventually it trended down, but is still quite high. He was co-managed by the Hospitalist Service and he was placed on IV oxacillin, which he tolerated without difficulty. The wound was checked on postop day 2 and incisions were benign. He had mild effusion, but he had improvement in his pain symptoms. He was able to weightbear and range his knee. On postop day 3, Infectious Diseases was consulted, specifically Dr. Antelmo Eubanks, and a PICC line was placed. He was kept in the hospital until PICC line teaching was complete. Once his pain was controlled, the PICC line teaching had been done, and after antibiotic sensitivities were obtained, he was discharged on IV antibiotics as well as pain medication. He was kept on subcu heparin while in the hospital for DVT prophylaxis as well as SCDs. Discharge condition: good DISCHARGE MEDICATIONS: Include: 1. IV oxacillin. 2. Oxycodone 10 mg to 15 mg q.3 hours. 3. Ibuprofen 800 mg q.8 hours. 4. Tylenol 1000 mg q.8 hours. 5. Home medications. FOLLOWUP: He will be scheduled for followup with Dr. Eubanks as well as Dr. Portillo within a week. [id number]/[facility] #: [id number] MTDD
== END 2016-06-17 13:00 | disposition home or self-care (01) | DRG 710 ==
LOC: OR 17:16 → SSU 21:00
PROVIDERS: ADMIT Orthopaedic Surgery; ATTEND Orthopaedic Surgery
PROC: 0SBC4ZZ Excision of Right Knee Joint, Percutaneous Endoscopic Approach (ICD-10-PCS; principal; 2016-06-13 17:00)
DX: A41.01 Sepsis due to Methicillin susceptible Staphylococcus aureus (principal); M00.061 Staphylococcal arthritis, right knee; J45.909 Unspecified asthma, uncomplicated; Z79.02 Long term (current) use of antithrombotics/antiplatelets; Z88.6 Allergy status to analgesic agent; Z79.82 Long term (current) use of aspirin
CPT/HCPCS: 36415; 80053; 85025; 85027; 85652; 86140; 87040; 87070; 87073; 87077; 87102; 87186; 87205; 87640; 87641; 99406; A9270-GY; C1751; J0690; J1170; J1644; J1885; J2270; J2700; J2704; J3010